=== PATIENT | male | born 1940 | race Caucasian/White ===

== ENCOUNTER 2016-05-09 16:03 | Emergency (ER) | payer MEDICARE ==
[~2016-05-09] VITALS: Ht 177.8 cm; Wt 90.9 kg
[~2016-05-09 16:03] MED LIST: ANTIBIOTIC; ANTIVERT 25MG25 MG PO; ASPIRIN 32325 MG/TAB PO; ASPIRIN 81M81 MG/TA2 PO; BETIMOL 0.5% OPH5 ML OP; CARDI-OMEGA1000 MG PO; CEPHALEXIN500 M1 PO; CLARITIN 1010 MG/TAB PO; FLAGYL 250250 MG/TAB PO; FLECTOR1.3% TP; IMDUR 30MG30 MG/TAB PO; LEVAQUIN 5500 MG/TA1 PO; LIPITOR20 MG PO; LIPITOR80 MG PO; LISINOPRIL2.5 MG PO; LOPRESSOR 225 MG/TAB PO; LOPRESSOR50 MG PO; MAREPA1200 MG PO; METOPROLOL SUCC25 MG PO; METOPROLOL TART25 MG PO; MULTIPLE VITAMI1 CAP PO; MUPIROCIN2% TP; NO HOME MEDICATIONS; NORCO 325 MG-51 TAB PO; OXYCONTIN 10MG10 MG PO; PERCOCET 325 MG1 TA2 PO; PLAVIX 75MG TAB75 MG PO; RANEXA500 MG PO; SIMVASTATIN40 MG PO; STOOL SOFTENER100 M2 PO; TOPROL XL 25MG25 MG PO; TOPROL XL25 MG PO; UNABLE; VIT D; VITAMIN B COMPL1 T16 PO; VITAMIN B-1000 MCG/T PO; VITAMIN D 400400 IU PO; [UNRECOGNIZED DRUG - SUPPLY] TP
[2016-05-09 16:08] VITALS: BP 133/79; TEMP 97.5
[2016-05-09 18:18] VITALS: PULSE 75
== END 2016-05-09 18:18 | disposition home or self-care (01) ==
LOC: COL.ER 16:03
DX: S16.1XXA Strain of muscle, fascia and tendon at neck level, initial encounter (principal); W17.89XA Other fall from one level to another, initial encounter

== ENCOUNTER 2018-05-30 23:09 | Emergency (ER) | payer MEDICARE ==
[~2018-05-30] VITALS: Ht 175.3 cm; Wt 91.8 kg
[2018-05-30 23:17] VITALS: TEMP 98.4
[2018-05-31 00:07] LABS: BASO % 0.8 % (0.0-2.0); EOS # 0.1 (0.0-0.7); EOS % 2.1 % (0-4.0); GRAN # 2.8 (1.4-6.5); HEMATOCRIT 49.1 % (42.0-52.0); HEMOGLOBIN 15.9 g/dl (13.5-18.0); LYMPH # 1.8 (1.2-3.4); MEAN CELL VOLUME 90 fl (80.0-100.0); MEAN CORPUSCULAR HEMOGLOBIN 29 pg (27.0-31.0); MEAN CORPUSCULAR HGB CONC 32 g/dl (33.0-37.0); MEAN PLATELET VOLUME 10.1 fl (7.4-10.4); MONO # 0.6 (0.1-0.6); MONO % 10.7 % (1.7-9.3); PLATELET COUNT 139 K/mm3 (130-400); RED BLOOD COUNT 5.44 M/mm3 (4.20-5.60); REDCELL DISTRIBUTION WIDTH-CV 13.8 % (11.5-14.5)
[2018-05-31 00:17] LABS: ALANINE AMINOTRANSFERASE 26 U/L (21-72); ALBUMIN 3.5 gm/dL (3.5-5.0); ALKALINE PHOSPHATASE 95 U/L (50-136); ANION GAP 7 mmol/L (7-16); AST,SGOT 18 U/L (15-37); BILIRUBIN,TOTAL 0.3 mg/dL (0.0-1.0); BLOOD UREA NITROGEN 15 mg/dL (9-20); CARBON DIOXIDE 25 mmol/L (22-30); CHLORIDE 108 mmol/L (98-107); CREATININE, serum 0.89 (0.66-1.25); SODIUM 140 mmol/L (137-145); TOTAL PROTEIN 6.5 gm/dL (6.4-8.2)
[2018-05-31 00:30] LABS: ERYTHROCYTE SEDIMENTATION RATE 1 mm/hr (0-30)
[2018-05-31 00:37] LABS: C-REACTIVE PROTEIN < 0.5 mg/dL (0.0-0.9); CREATINE KINASE 47 U/L (55-170); GLUCOSE 113 mg/dL (74-106); LIPASE 63 U/L (23-300)
[2018-05-31 00:50] LABS: TROPONIN-I < 0.012 ng/mL (0.000-0.035)
[2018-05-31 01:50] VITALS: BP 125/74; PULSE 61
== END 2018-05-31 01:50 | disposition home or self-care (01) ==
LOC: COL.ER 23:09
PROVIDERS: Emergency Medicine
DX: R51 Headache (principal); R07.9 Chest pain, unspecified; G89.29 Other chronic pain; I25.10 Atherosclerotic heart disease of native coronary artery without angina pectoris; Z95.5 Presence of coronary angioplasty implant and graft
CPT/HCPCS: J2270; J2405; J7040

== ENCOUNTER 2018-06-12 06:43 | Day surgery (SDC) | payer MEDICARE ==
[~2018-06-12] VITALS: Ht 175.4 cm; Wt 92.3 kg
[2018-06-12] VITALS (7 sets, daily range): BP systolic 87–129; BP diastolic 49–87; PULSE 51–67; TEMP 98
[2018-06-12 08:02] LABS: HEMATOCRIT 46.9 % (42.0-52.0); HEMOGLOBIN 15.5 g/dl (13.5-18.0); MEAN CELL VOLUME 89 fl (80.0-100.0); MEAN CORPUSCULAR HEMOGLOBIN 30 pg (27.0-31.0); MEAN CORPUSCULAR HGB CONC 33 g/dl (33.0-37.0); MEAN PLATELET VOLUME 10.1 fl (7.4-10.4); PLATELET COUNT 171 K/mm3 (130-400); RED BLOOD COUNT 5.26 M/mm3 (4.20-5.60); REDCELL DISTRIBUTION WIDTH-CV 13.5 % (11.5-14.5)
[2018-06-12 08:07] LABS: PROTHROMBIN TIME 11.4 SECONDS (9.7-12.8)
[2018-06-12 08:12] LABS: CALCIUM 9.2 mg/dL (8.4-10.2); CREATININE, serum 0.84 (0.66-1.25)
--- NOTE | 2018-06-12 09:00 | NUR ---
pt to procedure,report to Catalino Joshi.
[2018-06-12] MEDS ORDERED: LIPITOR 40MG TA40 MG PO (10:57)
[2018-06-12] MEDS ORDERED: TOPROL XL 25MG25 MG PO (10:58)
--- NOTE | 2018-06-12 13:00 | NUR ---
Discharge instructions given to pt.pt verbalizes understanding.INT removed,catheter tip intact.Pt escorted out via wheelchair.Son verbalizes discharge instructions as well.
== END 2018-06-12 13:01 | disposition home or self-care (01) ==
LOC: COL.CAR 06:43
PROVIDERS: Internal Medicine Cardiovascular Disease
DX: I25.10 Atherosclerotic heart disease of native coronary artery without angina pectoris (principal); I25.2 Old myocardial infarction; I34.0 Nonrheumatic mitral (valve) insufficiency; Z87.891 Personal history of nicotine dependence; Z95.5 Presence of coronary angioplasty implant and graft
CPT/HCPCS: J1644; J2250; J3010; Q9967

== ENCOUNTER 2019-04-05 20:08 | Emergency (ER) | payer MEDICARE ==
[~2019-04-05] VITALS: Ht 177.8 cm; Wt 93.6 kg
[~2019-04-05 20:08] MED LIST changes: +LIPITOR 40MG TA40 MG PO
[2019-04-05 20:12] VITALS: PULSE 94; TEMP 97.8
[2019-04-05 20:45] LABS: BASO # 0.1 (0.0-0.2); BASO % 0.8 % (0.0-2.0); EOS # 0.1 (0.0-0.7); GRAN # 3.8 (1.4-6.5); GRAN % 59.4 % (42.2-75.2); HEMOGLOBIN 17.2 g/dl (13.5-18.0); LYMPH # 1.8 (1.2-3.4); LYMPH % 27.7 % (20.0-51.0); MEAN CELL VOLUME 89 fl (80.0-100.0); MEAN CORPUSCULAR HEMOGLOBIN 29 pg (27.0-31.0); MEAN CORPUSCULAR HGB CONC 33 g/dl (33.0-37.0); MEAN PLATELET VOLUME 9.8 fl (7.4-10.4); MONO # 0.6 (0.1-0.6); MONO % 9.6 % (1.7-9.3); PLATELET COUNT 157 K/mm3 (130-400); RED BLOOD COUNT 5.86 M/mm3 (4.20-5.60); REDCELL DISTRIBUTION WIDTH-CV 14.1 % (11.5-14.5)
[2019-04-05 20:47] LABS: HEMATOCRIT 52.4 % (42.0-52.0)
[2019-04-05 20:55] LABS: ALBUMIN 4.3 gm/dL (3.5-5.0); BILIRUBIN,TOTAL 0.7 mg/dL (0.0-1.0); CALCIUM 9.5 mg/dL (8.4-10.2); CREATININE, serum 0.95 (0.66-1.25); POTASSIUM 4.3 mmol/L (3.4-5.0); TOTAL PROTEIN 7.4 gm/dL (6.4-8.2)
[2019-04-05 23:14] VITALS: BP 128/77
== END 2019-04-05 23:14 | disposition home or self-care (01) ==
LOC: COL.ER 20:08
PROVIDERS: Emergency Medicine
DX: K40.90 Unilateral inguinal hernia, without obstruction or gangrene, not specified as recurrent (principal); Z79.82 Long term (current) use of aspirin
CPT/HCPCS: J7030; Q9967

== ENCOUNTER 2019-11-19 09:45 | Inpatient (IN) | payer MEDICARE ==
[~2019-11-19] VITALS: Ht 177.8 cm; Wt 93.0 kg
[2019-11-19] VITALS (561 sets, daily range): BP systolic 107–135; BP diastolic 66–84; PULSE 55–66; TEMP 97.5–97.7; O2SAT 74–100
[2019-11-19 10:29] LABS: BASO # 0.1 (0.0-0.2); BASO % 0.8 % (0.0-2.0); EOS # 0.2 (0.0-0.7); EOS % 3.4 % (0-4.0); GRAN # 3.6 (1.4-6.5); GRAN % 58.8 % (42.2-75.2); LYMPH # 1.7 (1.2-3.4); LYMPH % 28.2 % (20.0-51.0); MEAN CELL VOLUME 90 fl (80.0-100.0); MEAN CORPUSCULAR HGB CONC 33 g/dl (33.0-37.0); MEAN PLATELET VOLUME 10.5 fl (7.4-10.4); MONO # 0.5 (0.1-0.6); MONO % 8.5 % (1.7-9.3); PLATELET COUNT 170 K/mm3 (130-400); RED BLOOD COUNT 6.33 M/mm3 (4.20-5.60); REDCELL DISTRIBUTION WIDTH-CV 14.6 % (11.5-14.5)
[2019-11-19 10:33] LABS: INR 0.9 (0.8-3.0); PROTHROMBIN TIME 10.3 SECONDS (9.7-12.8)
[2019-11-19 10:35] LABS: HEMOGLOBIN 18.5 g/dl (13.5-18.0); MEAN CORPUSCULAR HEMOGLOBIN 29 pg (27.0-31.0); PARTIAL THROMBOPLASTIN TIME 32.7 SECONDS (26.0-37.0)
[2019-11-19 10:43] LABS: ALANINE AMINOTRANSFERASE 27 U/L (4-49); ALBUMIN 4.9 gm/dL (3.5-5.0); ALKALINE PHOSPHATASE 143 U/L (50-136); ANION GAP 11 mmol/L (7-16); AST,SGOT 27 U/L (15-37); BILIRUBIN,TOTAL 0.7 mg/dL (0.0-1.0); BLOOD UREA NITROGEN 18 mg/dL (9-20); CALCIUM 9.9 mg/dL (8.4-10.2); CARBON DIOXIDE 28 mmol/L (22-30); CHLORIDE 103 mmol/L (98-107); CREATININE, serum 1.08 (0.66-1.25); GLUCOSE 100 mg/dL (74-106); POTASSIUM 4.1 mmol/L (3.4-5.0); SODIUM 142 mmol/L (137-145); TOTAL PROTEIN 8.5 gm/dL (6.4-8.2)
[2019-11-19 10:45] LABS: C-REACTIVE PROTEIN < 0.5 mg/dL (0.0-0.9)
[2019-11-19 10:56] LABS: TROPONIN-I 0.091 ng/mL (0.000-0.035)
--- NOTE | 2019-11-19 12:57 | NUR ---
SEE MEREARASH FOR ALL MEDICATION ADMIN TIMES, INTRA AND POST SEDATION ASSESSMENTS
--- NOTE | 2019-11-19 15:00 | NUR ---
Report received from Georgette and Pb, RNs at bedside. Pt in bed resting, hard of hearing, femostop at 90 mmhg to R groin site iwth minimal drainage on 2x2. Pedal pulse is +1, will continue to monitor.
--- NOTE | 2019-11-19 17:41 | NUR ---
Pt resting in bed, c/o pain to R hip and wanting "my CBD cream for my hip" asked Hollis if he would allow this and he stated "check with the night provider". Pt has difficulty keeping head down. Lifts often and wants to roll on side, discussed need for flat time until 815 pm and releasing the femostop at 615 pm. Requesting to sit up to pee, discussed inability to do this. Pt resting intermittently. Will continue to monitor.
--- NOTE | 2019-11-19 18:24 | NUR ---
Pt resting in bed with it tilted for him to watch [employer] game. PT has R eye is red with yellow drainage, and requesting cream for "jock itch" in groin. Called Sejal but she states "I will call you back". Loosened femostop 10 mmhg at 1815. Pt states he cannot eat lying flat nor can he void, will wait until flat time is up. Will give bedside shift report to nightshift nurse who will reusme care.
--- NOTE | 2019-11-19 21:15 | NUR ---
Femostop released at this time from right femoral heart cath site. Dressing changed to monitor for any new bleeding. Pt denies pain at site. Slight bruising around site. Site soft to palpation. Will continue to monitor site for active bleeding
--- NOTE | 2019-11-19 21:20 | NUR ---
Pt assessment completed and documented. Pt currently resting in bed watching television. Pt alert and oriented x4. Pt remains on bedrest at this time due to previous bleeding from heart cath site. Dressing to right groin CDI. Site soft to palpation. No new bruising. IVF infusing per orders to left ac IV site. Complaints of 5/10 right hip pain. Pt states he does not want to take any pain medications at this time. Pt denies any other needs/concerns at this time. Call light within reach. Will continue to monitor
[2019-11-20] VITALS (893 sets, daily range): BP systolic 101–126; BP diastolic 47–85; PULSE 70–90; TEMP 97.7–98; O2SAT 89–100
[2019-11-20 05:13] LABS: BASO % 0.6 % (0.0-2.0); EOS # 0.2 (0.0-0.7); EOS % 3.6 % (0-4.0); GRAN # 4.3 (1.4-6.5); GRAN % 65.3 % (42.2-75.2); HEMATOCRIT 44.6 % (42.0-52.0); LYMPH # 1.3 (1.2-3.4); LYMPH % 20.2 % (20.0-51.0); MEAN CELL VOLUME 89 fl (80.0-100.0); MEAN CORPUSCULAR HEMOGLOBIN 29 pg (27.0-31.0); MEAN CORPUSCULAR HGB CONC 33 g/dl (33.0-37.0); MONO # 0.6 (0.1-0.6); MONO % 9.7 % (1.7-9.3); PLATELET COUNT 153 K/mm3 (130-400); REDCELL DISTRIBUTION WIDTH-CV 14.4 % (11.5-14.5)
[2019-11-20 05:19] LABS: HEMOGLOBIN 14.6 g/dl (13.5-18.0)
[2019-11-20 05:21] LABS: CALCIUM 8.6 mg/dL (8.4-10.2); CHOLESTEROL RISK RATIO 5.7; CREATININE, serum 0.97 (0.66-1.25)
--- NOTE | 2019-11-20 06:18 | NUR ---
Pt has rested well overnight. States this morning he "feels much better". Purple bruising noted below heart cath site to the anterior thigh. Heart cath site soft to palpation. Gauze dressing CDI. INT to left ac CDI. Pt denies pain at this time. Call light within reach. Will report to dayshift who will resume care.
--- NOTE | 2019-11-20 07:33 | NUR ---
Report given to HOMER Alvarez
--- NOTE | 2019-11-20 10:09 | NUR ---
Initial visit; Patient thanked [facility] for looking in on him and offering prayer and God's blessings.
[2019-11-20] MEDS ORDERED: PLAVIX 75MG TAB75 MG PO (10:31)
[2019-11-20] MEDS ORDERED: DESENEX TP (10:32)
[2019-11-20 11:22] LABS: HEMATOCRIT 43.3 % (42.0-52.0); HEMOGLOBIN 14.4 g/dl (13.5-18.0)
--- NOTE | 2019-11-20 13:28 | NUR ---
Java Lead Engineer attended clinical rounds with the team. The patient is to discharge this day, 11/19. After rounds, ANDREA met with the patient to complete intake and discuss his discharge plan. The patient lives alone [place] miles outside of [place]. The patient uses a cane daily and has a walker. The patient's PCP is Dr. Caba and patient receives medications from [facility]. The patient does not have advanced directives. He has two adult children, Toi and Bridget. Toi (and his , Lillian) live 1/4 mile from the patient and Bridget lives in [place], [place]. The patient states Lillian cooks and provides meals for the patient. The patient plans to return home at discharge. ANDREA discussed home health services and provided [employer]'s list of supervisor audit clerks that serve the [place] area. The patient chose [facility]. Referral faxed. ANDREA contacted Sonia with [facility]. She will review the referral then inform this SW if they can accept the patient for services. ANDREA collaborated the above information with the patient's nurse.
--- NOTE | 2019-11-20 14:53 | NUR ---
Passenger Attendant contacted the patient's son, Toi #[phone] to review the discharge plan of home with home health services. Toi was agreeable to this plan and was surprised that the patient was open to home health services. However, Toi reports that the patient lives in unsanitary conditions. He has no sheets on his bed. He has mice in the home. He has dog and cat feces in the carpets and blankets. The patient has trash cans near his bed that he uses for use the restroom in the middle of the night instead of going to the toilet and he does not dump them. There is trash in there too. Toi reports that he is pulling out the carpets and cleaning up the home as best as he and his family can before the patient returns home. Toi reports he will have the patient stay in hotel overnight so he can finish cleaning up before the patient returns home. ANDREA discussed purchasing medical equipment for the patient such as a bedside commode to help keep the home duct cleaner. Toi reports he and his family are supportive and bring the patient food and assist as needed. Toi reports he just got tired of the patient's home being so unsanitary. ANDREA made an APS report. Intake # [id number]. ANDREA collaborated the above information with the patient's nurse.
--- NOTE | 2019-11-20 16:10 | NUR ---
Son, Toi, here to hot die picker patient. Discharge instructions and medication changes reviewed. Patient states understanding. Son states taking patient to hotel for the night while family cleans his house. Patient is able to get self from bed to wheel chair with minimal assist. Discharged home POV with son driving. All discharge instructions, medications ad follow up information in envelope and son carried to car
--- NOTE | 2019-11-20 16:31 | NUR ---
Sonia from [facility] reports they can take the patient on for PT and Nursing services.
== END 2019-11-20 16:10 | disposition home health service (06) | DRG 247 ==
LOC: COL.ER 09:45 → ICU 13:45
PROVIDERS: Family Medicine; ADMIT Hospitalist
PROC: 027034Z Dilation of Coronary Artery, One Artery with Drug-eluting Intraluminal Device, Percutaneous Approach (ICD-10-PCS; principal; 2019-11-19)
PROC: 4A023N8 Measurement of Cardiac Sampling and Pressure, Bilateral, Percutaneous Approach (ICD-10-PCS; 2019-11-19)
PROC: B2111ZZ Fluoroscopy of Multiple Coronary Arteries using Low Osmolar Contrast (ICD-10-PCS; 2019-11-19)
DX: I21.4 Non-ST elevation (NSTEMI) myocardial infarction (principal); E78.5 Hyperlipidemia, unspecified; I10 Essential (primary) hypertension; D75.1 Secondary polycythemia; Z79.82 Long term (current) use of aspirin; I25.2 Old myocardial infarction; Z95.818 Presence of other cardiac implants and grafts; F17.210 Nicotine dependence, cigarettes, uncomplicated
CPT/HCPCS: 99222-AI; 99239; C9600; J0583; J1644; J2250; J3010

== ENCOUNTER → 2019-12-07 | Outpatient (CLI) | payer MEDICARE ==
[~2019-12-07] MED LIST changes: +DESENEX TP
== END ==
LOC: COL.VAS 10:23
DX: S80.11XA Contusion of right lower leg, initial encounter (principal); M79.81 Nontraumatic hematoma of soft tissue

== ENCOUNTER 2020-05-26 10:52 | Emergency (ER) | payer MEDICARE ==
[~2020-05-26] VITALS: Ht 177.8 cm; Wt 92.3 kg
[2020-05-26 11:44] VITALS: BP 118/76; PULSE 88
== END 2020-05-26 11:45 | disposition home or self-care (01) ==
LOC: COL.ER 10:52
DX: S60.352A Superficial foreign body of left thumb, initial encounter (principal); M25.562 Pain in left knee; I25.2 Old myocardial infarction; Z79.02 Long term (current) use of antithrombotics/antiplatelets; Z79.82 Long term (current) use of aspirin; W18.09XA Striking against other object with subsequent fall, initial encounter

== ENCOUNTER 2021-05-09 15:46 | Emergency (ER) | payer MEDICARE ==
[~2021-05-09] VITALS: Ht 177.8 cm; Wt 93.6 kg
[2021-05-09 17:09] LABS: BASO % 0.4 % (0.0-2.0); EOS # 0.1 K/mm3 (0.0-0.7); EOS % 1.2 % (0.0-4.0); GRAN % 60.2 % (42.2-75.2); HEMOGLOBIN 17.5 g/dl (13.5-18.0); LYMPH # 1.3 K/mm3 (1.2-3.4); LYMPH % 26.4 % (20.0-51.0); MEAN CELL VOLUME 87 fl (80.0-100.0); MEAN CORPUSCULAR HEMOGLOBIN 29 pg (27-31); MEAN CORPUSCULAR HGB CONC 33 g/dl (33.0-37.0); MEAN PLATELET VOLUME 9.5 fl (7.4-10.4); MONO # 0.6 K/mm3 (0.1-0.6); MONO % 11.4 % (1.7-9.3); PLATELET COUNT 159 K/mm3 (130-400); RED BLOOD COUNT 6.14 M/mm3 (4.20-5.60); REDCELL DISTRIBUTION WIDTH-CV 15.1 % (11.5-14.5)
[2021-05-09 17:10] LABS: HEMATOCRIT 53.2 % (42.0-52.0)
[2021-05-09 17:31] LABS: BILIRUBIN,TOTAL 0.9 mg/dL (0.2-1.2); C-REACTIVE PROTEIN 2.74 mg/dL (0.00-0.50); CALCIUM 9.5 mg/dL (8.4-10.2); CREATININE, serum 1.14 mg/dL (0.72-1.25); POTASSIUM 4.4 mmol/L (3.5-4.5); TOTAL PROTEIN 7.6 gm/dL (6.2-8.1)
[2021-05-09 19:04] LABS: COLLECTION METHOD CLEAN CATCH
[2021-05-09 19:18] LABS: MUCOUS Present (NOT PRESENT); PH 5 (5-8); SQUAMOUS EPITHELIAL 0-2 /hpf (0-10); URINE APPEARANCE Hazy (CLEAR/HAZY); URINE BACTERIA None Seen /hpf (NONE SEEN); URINE BILIRUBIN Negative (NEGATIVE); URINE BLOOD 3+ (NEGATIVE); URINE COLOR Yellow (YELLOW); URINE GLUCOSE Negative (NEGATIVE); URINE KETONE Trace (NEGATIVE); URINE LEUKOCYTE ESTERASE Negative (NEGATIVE); URINE NITRATE Negative (NEGATIVE); URINE PROTEIN(semi-quant) Negative (NEGATIVE); URINE RBC >50 /hpf (0-2); URINE UROBILINOGEN Negative (NEGATIVE)
[2021-05-09 19:45] VITALS: BP 137/64; PULSE 71; TEMP 98.2
== END 2021-05-09 19:45 | disposition home or self-care (01) ==
LOC: COL.ER 15:46
PROVIDERS: Nurse Practitioner Primary Care
DX: R10.84 Generalized abdominal pain (principal); R19.7 Diarrhea, unspecified; Z20.822 Contact with and (suspected) exposure to COVID-19; Z87.891 Personal history of nicotine dependence
CPT/HCPCS: J2405; J7030; Q9967

== ENCOUNTER 2021-06-05 14:15 | Outpatient (RCR) | payer MEDICARE | END 2021-06-13 | disposition home or self-care (01) | LOC: WSPT | DX: M47.816 Spondylosis without myelopathy or radiculopathy, lumbar region (principal); G62.9 Polyneuropathy, unspecified; K52.9 Noninfective gastroenteritis and colitis, unspecified ==

== ENCOUNTER 2021-07-10 12:00 | Outpatient (RCR) | payer MEDICARE | END 2021-07-14 | disposition home or self-care (01) | LOC: WSPT | DX: G62.9 Polyneuropathy, unspecified (principal) ==

== ENCOUNTER 2021-09-14 19:05 | Emergency (ER) | payer MEDICARE ==
[~2021-09-14] VITALS: Ht 177.8 cm; Wt 88.6 kg
[2021-09-14 19:10] VITALS: TEMP 98.1
[2021-09-14 20:25] LABS: BASO % 0.6 % (0.0-2.0); EOS # 0.1 K/mm3 (0.0-0.7); GRAN # 3.8 K/mm3 (1.4-6.5); GRAN % 59.8 % (42.2-75.2); HEMATOCRIT 50.1 % (42.0-52.0); HEMOGLOBIN 16.6 g/dl (13.5-18.0); LYMPH # 1.8 K/mm3 (1.2-3.4); LYMPH % 28.4 % (20.0-51.0); MEAN CELL VOLUME 86 fl (80.0-100.0); MEAN CORPUSCULAR HEMOGLOBIN 28 pg (27-31); MEAN CORPUSCULAR HGB CONC 33 g/dl (33.0-37.0); MEAN PLATELET VOLUME 10.3 fl (7.4-10.4); MONO # 0.6 K/mm3 (0.1-0.6); MONO % 9.7 % (1.7-9.3); PLATELET COUNT 162 K/mm3 (130-400); RED BLOOD COUNT 5.85 M/mm3 (4.20-5.60); REDCELL DISTRIBUTION WIDTH-CV 15.6 % (11.5-14.5)
[2021-09-14 20:37] LABS: CALCIUM 9.4 mg/dL (8.4-10.2); CREATININE, serum 1.06 mg/dL (0.72-1.25); POTASSIUM 4.4 mmol/L (3.5-4.5)
[2021-09-14 20:47] LABS: ERYTHROCYTE SEDIMENTATION RATE 1 mm/hr (0-30)
[2021-09-14 22:10] VITALS: BP 128/74; PULSE 73
== END 2021-09-14 22:23 | disposition home or self-care (01) ==
LOC: COL.ER 19:05
PROVIDERS: Emergency Medicine
DX: H40.9 Unspecified glaucoma (principal)

== ENCOUNTER 2023-08-23 19:58 | Emergency (ER) | payer MEDICARE ==
[~2023-08-23] VITALS: Ht 177.8 cm; Wt 86.8 kg
[2023-08-23 20:15] VITALS: TEMP 98.2
[2023-08-23] MEDS ORDERED: Ketorolac 15 MG/ML VIAL IV ONE (20:45)
[2023-08-23 20:59] LABS: BASO # 0.1 K/mm3 (0.0-0.2); BASO % 0.9 % (0.0-2.0); EOS # 0.2 K/mm3 (0.0-0.7); EOS % 3.4 % (0.0-4.0); GRAN % 51.2 % (42.2-75.2); HEMATOCRIT 49.2 % (42.0-52.0); HEMOGLOBIN 15.8 g/dl (13.5-18.0); LYMPH % 33.6 % (20.0-51.0); MEAN CELL VOLUME 87 fl (80.0-100.0); MEAN CORPUSCULAR HEMOGLOBIN 28 pg (27-31); MEAN CORPUSCULAR HGB CONC 32 g/dl (33.0-37.0); MEAN PLATELET VOLUME 10.2 fl (7.4-10.4); MONO # 0.6 K/mm3 (0.1-0.6); MONO % 10.4 % (1.7-9.3); PLATELET COUNT 174 K/mm3 (130-400); RED BLOOD COUNT 5.64 M/mm3 (4.20-5.60); REDCELL DISTRIBUTION WIDTH-CV 14.3 % (11.5-14.5)
[2023-08-23 21:16] LABS: ALBUMIN 3.5 g/dL (3.4-4.8); BILIRUBIN,TOTAL 0.4 mg/dL (0.2-1.2); C-REACTIVE PROTEIN 0.18 mg/dL (0.00-0.50); CALCIUM 9.2 mg/dL (8.4-10.2); CREATININE, serum 1.03 mg/dL (0.72-1.25); TOTAL PROTEIN 6.3 g/dl (6.2-8.1); URIC ACID 5.7 mg/dL (3.5-7.2)
[2023-08-23] MEDS ORDERED: PREDNISONE20 MG PO (21:35)
[2023-08-23] MEDS ORDERED: predniSONE 20 MG TAB PO ONE (21:45)
[2023-08-23 21:50] VITALS: BP 128/82; PULSE 57
== END 2023-08-23 21:50 | disposition home or self-care (01) ==
LOC: COL.ER 19:58
PROVIDERS: Emergency Medicine
DX: M79.672 Pain in left foot (principal); Z87.891 Personal history of nicotine dependence
CPT/HCPCS: J1885; J7512